=== PATIENT | female | born 1985 | race Asian ===

== ENCOUNTER → 2024-02-05 16:27 | Outpatient (REF) | payer OTHER, SELFPAY | LOC: REG 16:27 | PROVIDERS: ATTENDING PHYSICIAN Obstetrics & Gynecology; FAMILY PHYSICIAN Physician Assistant Medical | DX: Z34.93 Encounter for supervision of normal pregnancy, unspecified, third trimester (principal) | CPT/HCPCS: 36415; 86850; 86900; 86901; J2790 ==

== ENCOUNTER 2024-05-07 12:23 | Observation (INO) | payer OTHER, SELFPAY ==
[2024-05-07 12:50] VITALS: BP 118/77
== END 2024-05-07 15:19 | disposition home or self-care (01) ==
LOC: LDRP 12:23
PROVIDERS: ADMITTING PHYSICIAN Obstetrics & Gynecology; FAMILY PHYSICIAN Physician Assistant Medical
DX: O47.1 False labor at or after 37 completed weeks of gestation (principal); O48.0 Post-term pregnancy; Z3A.40 40 weeks gestation of pregnancy; O99.820 Streptococcus B carrier state complicating pregnancy; O99.283 Endocrine, nutritional and metabolic diseases complicating pregnancy, third trimester; O09.523 Supervision of elderly multigravida, third trimester; E03.9 Hypothyroidism, unspecified; O99.013 Anemia complicating pregnancy, third trimester; D64.9 Anemia, unspecified; Z79.890 Hormone replacement therapy
CPT/HCPCS: 36415; 86850; 86870; 86900; 86901; G0378

== ENCOUNTER 2024-05-08 19:31 | Inpatient (IN) | payer OTHER, SELFPAY ==
[2024-05-08 19:39] VITALS: BMI 29.5
[2024-05-08 19:53] VITALS: BP 113/71
[2024-05-08 20:45] LABS: % Basophils 0.5 % (0-2); % Eosinophils 0.9 % (0-6); % Immature Granulocytes 0.7 % (0-0.5); % Lymphocytes 18.4 % (20.5-51.1); % Monocytes 7.8 % (1.7-9.3); % Neutrophils 71.7 % (42.2-75.2); Absolute Eosinophils 0.1 10^3/uL (0-0.7); Absolute Immature Granulocytes 0.1 10^3/uL (0-0.05); Absolute Lymphocytes 1.5 10^3/uL (1.2-3.4); Absolute Monocytes 0.6 10^3/uL (0.1-0.6); Absolute Neutrophils 5.8 10^3/uL (1.4-6.5); Hematocrit 32.2 % (37.0-47.0); Hemoglobin 10.5 g/dL (12.0-16.0); Mean Corp Hgb Conc. 32.6 g/dL (33.0-37.0); Mean Corpuscular Volume 64.4 fL (81.0-99.0); Mean Platelet Volume 10.9 fL (7.4-10.4); Nucleated Red Blood Cells % 0 %; Platelet Count 254 10^3/uL (130-400); Red Cell Dist. Width 15.7 % (11.5-14.5); White Blood Cell Count 8.1 10^3/uL (4.8-10.8)
[2024-05-08] MEDS: CYTOTEC 25 MICROGRAM VAG (22:47)
[2024-05-09] MEDS: CYTOTEC 50 MICROGRAM PO (02:59)
[2024-05-09] MEDS: FENTANYL/BUPIVACAINE 100 EPIDURAL (05:20)
[2024-05-09] MEDS: SUBLIMAZE 100 MCG EPIDURAL (05:20)
[2024-05-09] MEDS: PENICILLIN 110 UNITS IV (05:54)
[2024-05-09] MEDS: LR 1000 IV (05:55)
[2024-05-09] MEDS: SYNTHROID 125 MCG PO (06:06)
[2024-05-09] MEDS: CYTOTEC PO (07:00)
[2024-05-09] MEDS: PRENATAL PLUS 1 TABLET PO (09:20)
[2024-05-09] MEDS: FEOSOL 325 MG PO (09:21)
[2024-05-09] MEDS: COLACE 100 MG PO (09:28)
[2024-05-09] MEDS: MOTRIN 600 MG PO ×2 (14:04→20:22)
[2024-05-10] MEDS: TYLENOL 650 MG PO ×2 (01:56→08:45)
[2024-05-10 04:34] LABS: Hematocrit 26.5 % (37.0-47.0); Hemoglobin 8.6 g/dL (12.0-16.0)
[2024-05-10] MEDS: SYNTHROID 125 MCG PO (05:51)
[2024-05-10] MEDS: PRENATAL PLUS 1 TABLET PO (08:45)
[2024-05-10] MEDS: COLACE 100 MG PO (08:45)
[2024-05-10] MEDS: FEOSOL 325 MG PO (08:45)
[2024-05-10 13:45] LABS: Syphilis/T. pallidum Ab Reflex Negative (Negative)
== END 2024-05-10 13:30 | disposition home or self-care (01) | DRG 807 ==
LOC: LDRP 19:31
PROVIDERS: Obstetrics & Gynecology; ADMITTING PHYSICIAN Obstetrics & Gynecology
PROC: 3E0P7VZ Introduction of Hormone into Female Reproductive, Via Natural or Artificial Opening (ICD-10-PCS; 2024-05-08)
PROC: 10E0XZZ Delivery of Products of Conception, External Approach (ICD-10-PCS; 2024-05-09)
PROC: 0KQM0ZZ Repair Perineum Muscle, Open Approach (ICD-10-PCS; 2024-05-09)
DX: O48.0 Post-term pregnancy (principal); Z37.0 Single live birth; Z3A.40 40 weeks gestation of pregnancy; O99.824 Streptococcus B carrier state complicating childbirth; O69.1XX0 Labor and delivery complicated by cord around neck, with compression, not applicable or unspecified; O70.1 Second degree perineal laceration during delivery; O99.284 Endocrine, nutritional and metabolic diseases complicating childbirth; E03.9 Hypothyroidism, unspecified
CPT/HCPCS: 85014; 85018; 85025; 86780; 86850; 86900; 86901

== ENCOUNTER 2025-09-20 23:42 | Emergency (ER) | payer OTHER, SELFPAY ==
[2025-09-21 00:01] VITALS: BP 121/76
--- NOTE | 2025-09-21 01:07 | ED.GENMED ---
History of Present Illness
General
Chief Complaint: Skin Surface Trauma
Source: patient
Exam Limitations: none
Time Seen by Provider: 09/21/25 00:51
Nursing documentation reviewed up to this point in time: agreed with
History of Present Illness
History of Present Illness:
Patient is a 40-year-old female who presents to the ER complaining of laceration to left thumb. She cut her thumb around 5:30 PM on scissors. She is right-hand dominant. Her last tetanus is within the past 2 years. No other injuries. She is not
on blood thinners.
Phy Exam
General Physical Exam
General Presentation: no apparent distress
General age: appears stated age
General Skin: warm and dry
General Habitus: normal
General Mental: alert
General Hydration: appears well hydrated
Neurological Exam
Neurological Exam: alert and oriented x3
Musculoskeletal Exam
Musculoskeletal Exam: other (LUE with strong pulses + 2 cm skin avulsion to volar aspect of left thumb distal phalynx ; no bony tenderness )
Skin Exam
Skin Exam: normal color and warm/dry
Psychiatric Exam
Psychiatric Exam: normal mood/affect
Course
Vital Signs
Initial and Last Documented VS:
Initial Vital Signs
Temp Pulse Resp BP Pulse Ox
98.3 F 55 14 121/76 100
09/21/25 00:01 09/21/25 00:01 09/21/25 00:01 09/21/25 00:01 09/21/25 00:01
Last Documented Vital Signs
Temp Pulse Resp BP Pulse Ox
98.3 F 55 14 121/76 100
09/21/25 00:01 09/21/25 00:01 09/21/25 00:01 09/21/25 00:01 09/21/25 00:01
Procedures
Laceration Closure
Left Volar First Finger:
Status of Wound: clean
Size of Wound in cm: 2
Description of Wound Edges: other (skin avulsion )
Preparation: cleaned with saline
Revision/Debridement: routine- no revision (skin avulsion )
Type of Closure: other (Gelfoam )
MDM/Problems Addressed
MDM/Problems Addressed:
Patient with a skin avulsion to the left thumb distal phalanx ; wound is clean irrigated with copious amounts of saline wound was continually using however repaired with Gelfoam.Wound care reviewed.
*Pulse Oximetry
SaO2: 100
Oxygen Mode of Delivery: Room air
Patient hypoxic: no
*Critical Care Note
Total Time (30-74mins, 75-104mins- exclusive of procedures): Not Applicable
ED Attending Note
-
Portions of this chart may have been created with voice recognition software.� Occasional wrong word or��sound alike� substitutions may have occurred due to the inherent limitations of voice recognition software.
Discharge Plan
Departure
Patient Disposition: Home (Routine Discharge)
Date of Disposition: 09/21/25
Time of Disposition: 01:05
Patient with high blood pressure during this ER visit?: No
Condition: Fair
Covid-19: Not Applicable
Discharge Problem:
Avulsion of skin
Instructions: Wound Care (DC)
Prescriptions:
No Action
Colace
100 mg PO DAILY
Vitamin
1 tab PO DAILY
iron
65 mg PO DAILY
levothyroxine
125 mcg PO DAILY
ibuprofen 600 mg Tablet
600 mg PO Q6HPRN PRN (Reason: moderate pain/cramps) Qty: 90 0RF
Referrals:
Samia Deng MD, Resident [Family Provider, General]
Activity Restrictions/Additional Instructions:
Skin Avulsion:
Keep area clean and dry for 24 hours after 24 hours you may lightly wet wound. Foam will fall off on its own. Return if any signs of infection if increased pain swelling redness drainage fever chills. See family doctor as needed 2 days
Interventions
Interventions:
*Risk Screen - Suicide Last Done: 09/21/25 00:01
*General Assessment Last Done: 09/21/25 00:01
*Neglect/Abuse Screening Last Done: 09/21/25 00:01
*Nursing Disposition Last Done: 09/21/25 01:09
ED-Skin Assessment Last Done: 09/21/25 01:00
Discharge Date and Time
Print Language: URDU
== END 2025-09-21 01:09 | disposition home or self-care (01) ==
LOC: EMR 23:42
PROVIDERS: EMERGENCY PHYSICIAN Student in an Organized Health Care Education/Training Program
DX: S61.002A Unspecified open wound of left thumb without damage to nail, initial encounter (principal); W26.8XXA Contact with other sharp object(s), not elsewhere classified, initial encounter
CPT/HCPCS: 99282